=== PATIENT | female | born 1990 | race Caucasian/White ===

== ENCOUNTER 2020-01-31 12:44 | Outpatient (REF) | payer OTHER, SELFPAY ==
[2020-02-01 08:03] LABS: BV Int Neg Control Negative (Negative); BV Int Pos Control Positive (Positive)
[2020-02-01 14:17] LABS: N. gonorrhoeae RNA TMA NOT DETECTED (NOT DETECTED)
[2020-02-02 15:20] LABS: C. trachomatis RNA TMA NOT DETECTED (NOT DETECTED)
== END 2020-01-31 12:45 | disposition home or self-care (01) ==
LOC: HO.LAB 12:44
PROVIDERS: PCP Family Medicine; Visit Provider Obstetrics & Gynecology
DX: Z01.419 Encounter for gynecological examination (general) (routine) without abnormal findings (principal); B37.3 Candidiasis of vulva and vagina
CPT/HCPCS: 87480; 87491; 87510; 87591; 87660; 88142

== ENCOUNTER 2020-09-13 08:15 | Outpatient (REF) | payer OTHER, SELFPAY ==
[2020-09-13 13:14] LABS: CT PCR NOT DETECTED (Not Detect.); NG PCR NOT DETECTED (Not Detect.)
[2020-09-14 10:07] LABS: BV Int Neg Control Negative (Negative); BV Int Pos Control Positive (Positive)
[2020-09-14 13:42] LABS: Prolactin 27.5 ng/mL
== END 2020-09-13 08:16 | disposition home or self-care (01) ==
LOC: HO.LAB 08:15
PROVIDERS: PCP Family Medicine; Visit Provider Advanced Practice Midwife
DX: R10.2 Pelvic and perineal pain (principal); N64.3 Galactorrhea not associated with childbirth; N64.52 Nipple discharge
CPT/HCPCS: 36415; 81003; 81025; 84146; 87480; 87491; 87510; 87591; 87660; 99212

== ENCOUNTER → 2020-09-27 11:15 | Outpatient (BNVA) | payer OTHER, SELFPAY | PROVIDERS: PCP Family Medicine; Visit Provider Advanced Practice Midwife ==

== ENCOUNTER 2021-04-03 09:29 | Outpatient (REF) | payer OTHER, SELFPAY ==
[2021-04-03 15:35] LABS: CT PCR NOT DETECTED (Not Detect.); NG PCR NOT DETECTED (Not Detect.)
[2021-04-06 14:23] LABS: HPV mRNA E6/E7 rflx Not Detected (Not Detected)
== END 2021-04-03 09:30 | disposition home or self-care (01) ==
LOC: HO.LAB 09:29
PROVIDERS: PCP Family Medicine; Visit Provider Advanced Practice Midwife
DX: Z01.419 Encounter for gynecological examination (general) (routine) without abnormal findings (principal); Z11.51 Encounter for screening for human papillomavirus (HPV); Z20.2 Contact with and (suspected) exposure to infections with a predominantly sexual mode of transmission
CPT/HCPCS: 87491; 87591; 87624; 88142

== ENCOUNTER 2021-04-17 15:00 | Outpatient (REF) | payer OTHER, SELFPAY ==
--- NOTE | ~2021-04-17 | MM_ITS ---
EXAMINATION: MM DIAGNOSTIC DIGITAL BREAST TOMOSYNTHESIS, BILATERAL US DIAGNOSTIC ULTRASOUND BREAST, RIGHT CLINICAL INFORMATION: Pain upper outer right breast for several months on and off, noncyclical. No palpable mass or discharge. No known family history breast cancer. Age 30. No prior breast imaging. The lifetime risk of breast cancer based on the Tyrer-Cuzick Model is 10%. COMPARISON: None (current study represents initial baseline exam). TECHNIQUE: Digital breast tomosynthesis is performed in both the craniocaudal and mediolateral oblique views along with computer-aided detection (CAD). Synthesized 2D images are generated from the tomosynthesis. Ultrasound right breast is targeted to the 8:00 through 1:00 position. Grayscale imaging and color Doppler are performed without and with harmonics. FINDINGS: The breasts are heterogeneously dense, which may obscure small masses (ACR BI-RADS breast composition Category c). There are no significant masses, abnormal calcifications, or other abnormalities. No focal duct ectasia. No skin thickening or coarsening of the Mango's ligaments. The axilla are unremarkable. Ultrasound right breast demonstrates no cystic or solid mass or architectural abnormality or focal duct ectasia. No skin thickening or edema tracking in soft tissue planes. Results are discussed with the patient at time of visit. MM/MM tomosynthesis diagnostic BI IMPRESSION: -No mammographic evidence of malignancy or inflammatory changes. -Unremarkable targeted right breast ultrasound. ASSESSMENT: BI-RADS 1: Negative RECOMMENDATION: 1. Patient's right breast pain should be managed based on the clinical impression. 2. Otherwise, routine annual screening mammography, beginning age 40, or earlier as clinical risk factors warrant. This patient's information was entered into a reminder system with a target due date for their next mammogram.
== END 2021-04-17 15:01 | disposition home or self-care (01) ==
LOC: HO.MAMMO 15:00
PROVIDERS: PCP Family Medicine; Visit Provider Advanced Practice Midwife
DX: N64.4 Mastodynia (principal)
CPT/HCPCS: 76642; 77062; 77066

== ENCOUNTER 2022-07-31 10:03 | Outpatient (REF) | payer OTHER, SELFPAY ==
[2022-07-31 17:26] LABS: CT PCR NOT DETECTED (Not Detect.); NG PCR NOT DETECTED (Not Detect.)
== END 2022-07-31 10:04 | disposition home or self-care (01) ==
LOC: HO.LNP 10:03
PROVIDERS: Visit Provider Advanced Practice Midwife
DX: Z20.2 Contact with and (suspected) exposure to infections with a predominantly sexual mode of transmission (principal)
CPT/HCPCS: 0353U

== ENCOUNTER 2023-05-27 11:27 | Outpatient (AMB) | payer OTHER, SELFPAY ==
--- NOTE | 2023-05-27 11:31 | MHC.OFFVIS ---
Intake Vital Signs 05/27/23 11:33 Height 4 ft 10 in BP 102/66 Intake Visit Reasons: Consult for IUD removal Intake Note: pt c/o vag inf or bleeding after intimacy, heavy bleeding in Feb, change in moods Content Producer: Content Producer Present (Rosa) Allergies Opioids - Morphine Analogues Allergy (Severe, Verified 05/27/23 11:33) Anaphylaxis amoxicillin [AMOXICILLIN] Allergy (Unknown, Verified 05/27/23 11:33) RASH clavulanic acid [From AUGMENTIN] Allergy (Unknown, Verified 05/27/23 11:33) RASH desogestrel [From DESOGEN] Allergy (Unknown, Verified 05/27/23 11:33) breast tenderness drospirenone [From BEYAZ] Allergy (Unknown, Verified 05/27/23 11:33) itching,mood changes ethinyl estradiol [From DESOGEN] Allergy (Unknown, Verified 05/27/23 11:33) breast tenderness latex [LATEX] Allergy (Unknown, Verified 05/27/23 11:33) RASH levomefolate calcium [From BEYAZ] Allergy (Unknown, Verified 05/27/23 11:33) itching,mood changes morphine [MORPHINE] Allergy (Unknown, Verified 05/27/23 11:33) bradycardia norethindrone acetate [From GILDESS 02/28 ()] Allergy (Unknown, Verified 05/27/23 11:33) hives, throat swelling Sulfa (Sulfonamide Antibiotics) [SULFA (SULFONAMIDE ANTIBIOTICS)] Allergy (Unknown, Verified 05/27/23 11:33) ANAPHYLAXIS Gildess 02/28 Allergy (Unknown, Uncoded 09/27/20 11:16) hives, throat swelling Latex Allergy (Unknown, Uncoded 09/27/20 11:16) rash Emoquette Adverse Reaction (Unknown, Uncoded 09/27/20 11:16) breast tenderness HPI HPI Comments History of Present Illness Details Patient is here today with concerns, she reports breakthrough bleeding with her Mirena IUD, a little bit more than her normal in March lasted a week and heavier than usual. She also reports since last fall she is having some increase in vaginal discharge slight sweet odor, she thinks was yeast infections and treated with [id number] medications. She also reports that her hormones may be off, she just feels different. She admits to having a lot of sugar in her diet, and is working with her PCP for her weight management goals. 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 Sexual orientation: Straight/Heterosexual Gender identity: Female Female Reproductive History Menstrual Age of Menarche: 12 control method: progestin IUCD (Mirena 02/2018) Date of last pap smear: 04/03/21 (neg pap and hpv) Review of Systems Const All systems reviewed & are unremarkable except as noted in HPI and below Physical Exam Vital Signs: Last Vital Signs BP 102/66 05/27/23 11:33 Const General: cooperative, healthy appearing and no acute distress Orientation/consciousness: patient oriented x3 GI Inspection: Yes normal to inspection Palpation (GI): Soft to palpation and Other GI palpation findings present (Nontender) Rectal Exam - Female: visual inspection normal General: Yes bladder normal to palpation External Female Exam: normal appearance of the urethra Speculum Exam - Vagina: normal appearance of the vagina, normal palpation, normal vaginal discharge and vaginal bleeding Speculum Exam - Cervix: normal appearance of the cervix, normal palpation and Other cervical findings present (IUD strings normal at os) Bimanual exam- vagina & uterus: normal bimanual exam, normal palpation, uterine size normal, bladder normal to palpation, normal palpation, uterine shape normal and non-tender Bimanual Exam- Adnexa, other: normal adnexae OB/external & speculum: vaginal bleeding Neuro General: patient oriented x3 Results AMB Test Urine AMB Test Urine Negative Last Edit by NABEEL Houston on 05/27/23 11:53 Assessment & Plan Assessment & Plan (1) Postcoital bleeding: Code(s): N93.0 - Postcoital and contact bleeding (2) Vaginal discharge: Code(s): N89.8 - Other specified noninflammatory disorders of vagina Plan Discussed plan of care to include pelvic ultrasound, cultures today for BV panel and GC chlamydia. Encouraged to reduce her sugar intake, and to hydrate well. Return to the office for ultrasound follow-up. All of her questions and concerns were addressed to the best of my ability and shared decision making. She is agreeable to the plan of care. This note is constructed using voice recognition software. While every effort has been made to ensure accuracy, metal sponge making machine operator errors may have been included. Orders: Orders Bacterial Vaginosis Panel Today N89.8 - Other specified noninflammatory disorders of vagina, N92.1 - Excessive and frequent menstruation with irregular cycle, Z97.5 - Presence of (intrauterine) contraceptive device AMB HCG Urine Test Today N92.1 - Excessive and frequent menstruation with irregular cycle, Z97.5 - Presence of (intrauterine) contraceptive device CT NG by PCR Today N89.8 - Other specified noninflammatory disorders of vagina, N92.1 - Excessive and frequent menstruation with irregular cycle, Z97.5 - Presence of (intrauterine) contraceptive device Coding Level of Care Code Est Pt Level 4 (29236) Diagnoses Postcoital bleeding N93.0 Vaginal discharge N89.8
[2023-05-27 11:33] VITALS: BP 102/66
== END 2023-05-27 13:07 | disposition home or self-care (01) ==
PROVIDERS: Visit Provider Advanced Practice Midwife
DX: N92.1 Excessive and frequent menstruation with irregular cycle (principal); Z97.5 Presence of (intrauterine) contraceptive device; N93.0 Postcoital and contact bleeding; N89.8 Other specified noninflammatory disorders of vagina
CPT/HCPCS: 99214

== ENCOUNTER 2023-05-27 11:27 | Outpatient (REF) | payer OTHER, SELFPAY ==
[2023-05-27 18:01] LABS: CT PCR NOT DETECTED (Not Detect.); NG PCR NOT DETECTED (Not Detect.)
[2023-05-28 12:41] LABS: BV Int Neg Control Negative (Negative); BV Int Pos Control Positive (Positive)
== END 2023-05-27 11:28 | disposition home or self-care (01) ==
LOC: HO.LAB 11:27
PROVIDERS: Visit Provider Advanced Practice Midwife
DX: N92.1 Excessive and frequent menstruation with irregular cycle (principal); N89.8 Other specified noninflammatory disorders of vagina; N93.0 Postcoital and contact bleeding; Z97.5 Presence of (intrauterine) contraceptive device
CPT/HCPCS: 0353U; 81025; 87480; 87510; 87660

== ENCOUNTER 2023-05-27 11:46 | Outpatient (REF) | payer OTHER, SELFPAY | END 2023-05-27 11:47 | disposition home or self-care (01) | LOC: HO.LNP 11:46 | PROVIDERS: Visit Provider Advanced Practice Midwife | DX: Z13.89 Encounter for screening for other disorder (principal) ==

== ENCOUNTER 2023-05-29 13:25 | Outpatient (REF) | payer OTHER, SELFPAY ==
--- NOTE | ~2023-05-29 | US_ITS ---
EXAMINATION: US PELVIS CLINICAL INFORMATION: Postcoital in contact bleeding LMP January 2017 COMPARISON: Pelvic ultrasound 09/12/2016 TECHNIQUE: Ultrasound of the pelvis is performed using both transabdominal and transvaginal transducers along with Doppler. Transvaginal imaging is performed due to inadequate visualization transabdominally. FINDINGS: Uterus: The uterus is retroverted and measures 8.1 x 3.8 x 6.6 cm. No focal fibroid. The endometrial thickness 0.2 cm The body of the IUD is in the lower uterine segment with arm perforating the myometrium in the lower/mid body of the uterus. Adnexa: Both ovaries are visualized. There is normal color flow to the adnexa. There is no ovarian torsion. There is no pelvic ascites or fluid collection. Right ovary measures 2.6 x 1.9 x 2.0 cm. Volume 7.5 mL. Left ovary measures 4.0 x 1.8 x 2.7 cm. Volume 10.0 cm. US/US pelvic and transvaginal IMPRESSION: 1. THE BODY OF THE IUD IS IN THE LOWER UTERINE SEGMENT WITH ARM PERFORATING THE MYOMETRIUM IN THE LOWER/MID BODY OF THE UTERUS. 2. Retroverted uterus. 3. Normal ovaries.
== END 2023-05-29 13:26 | disposition home or self-care (01) ==
LOC: HO.US 13:25
PROVIDERS: Visit Provider Advanced Practice Midwife
DX: N93.0 Postcoital and contact bleeding (principal)
CPT/HCPCS: 76830; 76856

== ENCOUNTER 2023-06-02 14:21 | Outpatient (AMB) | payer OTHER, SELFPAY ==
--- NOTE | 2023-06-02 14:36 | MHC.OFFVIS ---
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: Route Sales Delivery Drivers Supervisor Present (Rosa) Allergies Opioids - Morphine Analogues Allergy (Severe, Verified 05/27/23 11:33) Anaphylaxis amoxicillin [AMOXICILLIN] Allergy (Unknown, Verified 05/27/23 11:33) RASH clavulanic acid [From AUGMENTIN] Allergy (Unknown, Verified 05/27/23 11:33) RASH desogestrel [From DESOGEN] Allergy (Unknown, Verified 05/27/23 11:33) breast tenderness drospirenone [From BEYAZ] Allergy (Unknown, Verified 05/27/23 11:33) itching,mood changes ethinyl estradiol [From DESOGEN] Allergy (Unknown, Verified 05/27/23 11:33) breast tenderness latex [LATEX] Allergy (Unknown, Verified 05/27/23 11:33) RASH levomefolate calcium [From BEYAZ] Allergy (Unknown, Verified 05/27/23 11:33) itching,mood changes morphine [MORPHINE] Allergy (Unknown, Verified 05/27/23 11:33) bradycardia norethindrone acetate [From GILDESS 02/28 ()] Allergy (Unknown, Verified 05/27/23 11:33) hives, throat swelling Sulfa (Sulfonamide Antibiotics) [SULFA (SULFONAMIDE ANTIBIOTICS)] Allergy (Unknown, Verified 05/27/23 11:33) ANAPHYLAXIS Gildess 02/28 Allergy (Unknown, Uncoded 09/27/20 11:16) hives, throat swelling Latex Allergy (Unknown, Uncoded 09/27/20 11:16) rash Emoquette Adverse Reaction (Unknown, Uncoded 09/27/20 11:16) breast tenderness HPI Comments Details: Patient is here for a follow up ultrasound results due to irregular bleeding, IUD is in the lower segment and arms perforating the myometrium requiring removal. She is also experiencing currently a kidney stone. Urine test is negative today. She was counseled regarding the removal of her IUD. She was consented for the procedure along with anticipatory guidance for the removal and the consents form was signed. She desires to proceed with the IUD removal. 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 Sexual orientation: Straight/Heterosexual Gender identity: Female Female Reproductive History Menstrual Age of Menarche: 12 Review of Systems Const All systems reviewed & are unremarkable except as noted in HPI and below Physical Exam Const General: cooperative, healthy appearing and no acute distress Orientation/consciousness: patient oriented x3 GI Inspection: Yes normal to inspection Palpation (GI): Soft to palpation and Other GI palpation findings present (Nontender) Rectal Exam - Female: visual inspection normal General: Yes bladder normal to palpation External Female Exam: normal appearance of the urethra Speculum Exam - Vagina: normal appearance of the vagina, normal palpation and normal vaginal discharge Speculum Exam - Cervix: normal appearance of the cervix, normal palpation and Other cervical findings present (IUD strings at the os) Bimanual exam- vagina & uterus: normal bimanual exam, normal palpation, uterine size normal, bladder normal to palpation, normal palpation, uterine shape normal and non-tender Bimanual Exam- Adnexa, other: normal adnexae Neuro General: patient oriented x3 Office Procedures Contraception Insert/Removal Details Details: IUD Removal Procedure: The patient was placed in the dorsal lithotomy position. A speculum was inserted vaginally and the cervix and strings were visualized at the os. A ring forcep was utilized, and the patient was asked to give a deep cough while the strings were grasped and gentle firm tug at the same time, removing the IUD device intact. Minimal bleeding was observed. All of the equipment was removed. The patient tolerated the procedure well and left the office in good condition. [id number] - Removal Results AMB Test Urine AMB Test Urine Negative Last Edit by NABEEL Houston on 06/02/23 15:08 Results Reviewed Results Reviewed: Laboratory Last Values Tst Clinic Negative 06/02/23 15:[address] [address] Ultrasound Report Signed with Addenda Patient: Gloria Santamaria MR#: [id number] : 1990 Acct:[id number] Age/Sex: 32 / F ADM Date: 05/29/23 Loc: .[place] Attending Dr: Katie Isabel CNM Ordering Physician: Katie Isabel CNM Date of Service: 05/29/23 Procedure(s): US pelvic and transvaginal Accession Number(s): [id number] cc: Katie Isabel CNM~ ADDENDUMResults Acknowledgement: ANDRE Ypeez (06/01/2023 09:00:44): I spoke to Lali Sharp LPN, at 8:40 AM. Addendum Dictated By: Brittany Walton MD Addendum Signed By: <Electronically signed by Brittany Walton MD in OV> 06/01/23922 Addendum Cosigned By: DD/ TD/TT: / EXAMINATION: US PELVIS CLINICAL INFORMATION: Postcoital in contact bleeding LMP January 2017 COMPARISON: Pelvic ultrasound 09/12/2016 TECHNIQUE: Ultrasound of the pelvis is performed using both transabdominal and transvaginal transducers along with Doppler. Transvaginal imaging is performed due to inadequate visualization transabdominally. FINDINGS: Uterus: The uterus is retroverted and measures 8.1 x 3.8 x 6.6 cm. No focal fibroid. The endometrial thickness 0.2 cm The body of the IUD is in the lower uterine segment with arm perforating the myometrium in the lower/mid body of the uterus. Adnexa: Both ovaries are visualized. There is normal color flow to the adnexa. There is no ovarian torsion. There is no pelvic ascites or fluid collection. Right ovary measures 2.6 x 1.9 x 2.0 cm. Volume 7.5 mL. Left ovary measures 4.0 x 1.8 x 2.7 cm. Volume 10.0 cm. US/US pelvic and transvaginal IMPRESSION: 1. THE BODY OF THE IUD IS IN THE LOWER UTERINE SEGMENT WITH ARM PERFORATING THE MYOMETRIUM IN THE LOWER/MID BODY OF THE UTERUS. 2. Retroverted uterus. 3. Normal ovaries. Dictated By: Brittany Walton MD Signed By: <Electronically signed by Brittany Walton MD in [place]> 06/01/23 0816 DD/ 1407 TD/TT: Community Pharmacist: Assessment & Plan Assessment & Plan (1) Malpositioned intrauterine device (IUD): Code(s): T83.32XA - Displacement of intrauterine contraceptive device, initial encounter (2) Encounter for IUD removal: Code(s): Z30.432 - Encounter for removal of intrauterine contraceptive device Plan Patient prefers not to have any control at this time. She agrees to use condoms. She will repeat her test at home in another week. Advised to call sooner if wants to have other alternatives for control initiated for an appointment. She has an annual exam scheduled in July and wishes to discuss her control at that visit. IUD Removal Information: You may have light bleeding for several days, tapering off to a brown or pink color. Mild cramping after removal is common. She is already using qezu-[id number]-[id number] analgesics for her renal calculi. Call the office if you experience: fever (over 100.4), flu like symptoms, abdominal or pelvic pain, foul smelling discharge or heavy bleeding. This note is constructed using voice recognition software. While every effort has been made to ensure accuracy, early childhood teacher errors may have been included. Orders: Orders AMB HCG Urine Test Today Z32.02 - Encounter for test, result negative Coding Level of Care Code Procedure Only Diagnoses Malpositioned intrauterine device (IUD) T83.32XA Encounter for IUD removal Z30.432 CPT Codes Details - Contraception: 77507 - Removal ([id number])
== END 2023-06-02 15:08 | disposition home or self-care (01) ==
LOC: HO.HWS 14:21
PROVIDERS: Visit Provider Advanced Practice Midwife
DX: T83.32XA Displacement of intrauterine contraceptive device, initial encounter (principal); Z30.432 Encounter for removal of intrauterine contraceptive device; Z32.02 Encounter for pregnancy test, result negative
CPT/HCPCS: 58301

== ENCOUNTER → 2023-06-02 14:21 | Outpatient (BNVA) | payer OTHER, SELFPAY | PROVIDERS: Visit Provider Advanced Practice Midwife | DX: Z30.432 Encounter for removal of intrauterine contraceptive device (principal) | CPT/HCPCS: 58301; 81025 ==

== ENCOUNTER 2023-08-05 13:49 | Outpatient (AMB) | payer OTHER, SELFPAY ==
--- NOTE | 2023-08-05 13:51 | MHC.OFFVIS ---
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 Allergies Opioids - Morphine Analogues Allergy (Severe, Verified 05/27/23 11:33) Anaphylaxis amoxicillin [AMOXICILLIN] Allergy (Unknown, Verified 05/27/23 11:33) RASH clavulanic acid [From AUGMENTIN] Allergy (Unknown, Verified 05/27/23 11:33) RASH desogestrel [From DESOGEN] Allergy (Unknown, Verified 05/27/23 11:33) breast tenderness drospirenone [From BEYAZ] Allergy (Unknown, Verified 05/27/23 11:33) itching,mood changes ethinyl estradiol [From DESOGEN] Allergy (Unknown, Verified 05/27/23 11:33) breast tenderness latex [LATEX] Allergy (Unknown, Verified 05/27/23 11:33) RASH levomefolate calcium [From BEYAZ] Allergy (Unknown, Verified 05/27/23 11:33) itching,mood changes morphine [MORPHINE] Allergy (Unknown, Verified 05/27/23 11:33) bradycardia norethindrone acetate [From GILDESS 02/28 (21)] Allergy (Unknown, Verified 05/27/23 11:33) hives, throat swelling Sulfa (Sulfonamide Antibiotics) [SULFA (SULFONAMIDE ANTIBIOTICS)] Allergy (Unknown, Verified 05/27/23 11:33) ANAPHYLAXIS Gildess 02/28 Allergy (Unknown, Uncoded 09/27/20 11:16) hives, throat swelling Latex Allergy (Unknown, Uncoded 09/27/20 11:16) rash Emoquette Adverse Reaction (Unknown, Uncoded 09/27/20 11:16) breast tenderness Is last menstrual period known: Yes Last menstrual period: 07/20/23 Post menopausal: No Patient : No HPI Comments Details: She is a premenopausal woman presenting for annual examination. Doing well with no concerns. She tries to eat healthy and stays active with exercise. Currently is sexually active, uses condoms. She reports last cycle was normal little heavier since the IUD has been removed. She is undecided if she wants to have another IUD in the future she would like to see how her cycles are, she reports some acne since the IUD was removed. She denies vaginal itching and irritation. She decline STD screening. Denies family history of ovarian or colon cancer. FH breast cancer-mother, BRCA negative. Last pap smear 2021, negative. 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 Sexual orientation: Straight/Heterosexual Gender identity: Female Female Reproductive History Menstrual Age of Menarche: 12 Date of last menstrual period: 07/20/23 Review of Systems Const All systems reviewed & are unremarkable except as noted in HPI and below Reports as per HPI Eyes Reports no additional complaints ENT Reports no additional complaints Card Reports no additional complaints Resp Reports no additional complaints GI Reports as per HPI and Reports no additional complaints Reports as per HPI Musc Reports no additional complaints Skin/Breast Reports as per HPI Neuro Reports no additional complaints Psych Reports no additional complaints Endo Reports no additional complaints Huseyin/Lymph Reports no additional complaints Aller/Immun Reports no additional complaints Physical Exam Vital Signs: Last Vital Signs BP 102/68 08/05/23 13:54 BMI result Body Mass Index 29.3 Const General: cooperative, healthy appearing, no acute distress, well developed and alert Orientation/consciousness: patient oriented x3 HEENT Head: Yes normal to inspection Eyes General: appearance normal, both eyes and all related structures Neck Neck: Yes normal visual inspection Thyroid: Thyroid normal Chest Chest palpation & inspection: normal inspection of the chest and other (no puckering, dimpling, peau de orange, retraction, discharge, masses) Breast/axilla inspection: normal inspection of the breasts Breast/axilla palpation: normal palpation of the breasts Resp Effort & Inspection: normal respiratory effort GI Inspection: Yes normal to inspection Palpation (GI): Soft to palpation Rectal Exam - Female: deferred General: Yes bladder normal to palpation External Female Exam: normal external appearance and normal appearance of the urethra Speculum Exam - Vagina: normal appearance of the vagina, normal palpation and normal vaginal discharge Speculum Exam - Cervix: normal appearance of the cervix and normal palpation Bimanual exam- vagina & uterus: normal bimanual exam, normal palpation, uterine size normal, bladder normal to palpation, normal palpation and non-tender Bimanual Exam- Adnexa, other: no masses Skin General skin exam: no rashes or lesions noted Rashes: no rashes Neuro General: patient oriented x3 Cognition (Neuro): normal cognition Extrem General: Yes normal to inspection Psych Attitude: cooperative Thought process: Normal thought process present Assessment & Plan Assessment & Plan (1) Encounter for well woman exam with routine gynecological exam: Code(s): Z01.419 - Encounter for gynecological examination (general) (routine) without abnormal findings Plan Discussed: Current recommendations for pap smears per ASCCP guidelines. Breast awareness and periodic breast exams. Maintain a healthy lifestyle including a well balanced diet and routine exercise. Use condoms for prevention. Monitor menses and report any abnormal changes. Patient verbalizes understanding and agrees to the plan of care. She was given opportunity to ask questions and all questions were answered to the best of my ability. RTO in one year for annual xerox machine operator examination. This note is constructed using voice recognition software. While every effort has been made to ensure accuracy, industrial pipefitter journeyman errors may have been included. Coding Level of Care Code Est Pt Prev Care 18-39y(57604) Diagnoses Encounter for well woman exam with routine gynecological exam Z01.419
[2023-08-05 13:54] VITALS: BP 102/68; BMI 29.3
== END 2023-08-05 14:27 | disposition home or self-care (01) ==
PROVIDERS: Visit Provider Advanced Practice Midwife
DX: Z01.419 Encounter for gynecological examination (general) (routine) without abnormal findings (principal)
CPT/HCPCS: 99395

== ENCOUNTER → 2023-08-05 13:49 | Outpatient (BNVA) | payer OTHER, SELFPAY | PROVIDERS: Visit Provider Advanced Practice Midwife ==

== ENCOUNTER 2024-08-09 13:52 | Outpatient (AMB) | payer OTHER, SELFPAY ==
--- NOTE | 2024-08-09 13:57 | MHC.OFFVIS ---
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: Incising Machine Operator Present (Rosa) Allergies Opioids - Morphine Analogues Allergy (Severe, Verified 08/09/24 13:58) Anaphylaxis amoxicillin (AMOXICILLIN) Allergy (Unknown, Verified 08/09/24 13:58) RASH clavulanic acid (From AUGMENTIN) Allergy (Unknown, Verified 08/09/24 13:58) RASH desogestrel (From DESOGEN) Allergy (Unknown, Verified 08/09/24 13:58) breast tenderness drospirenone (From BEYAZ) Allergy (Unknown, Verified 08/09/24 13:58) itching,mood changes ethinyl estradiol (From DESOGEN) Allergy (Unknown, Verified 08/09/24 13:58) breast tenderness latex (LATEX) Allergy (Unknown, Verified 08/09/24 13:58) RASH levomefolate calcium (From BEYAZ) Allergy (Unknown, Verified 08/09/24 13:58) itching,mood changes morphine (MORPHINE) Allergy (Unknown, Verified 08/09/24 13:58) bradycardia norethindrone acetate (From GILDESS 02/28 (21)) Allergy (Unknown, Verified 08/09/24 13:58) hives, throat swelling Sulfa (Sulfonamide Antibiotics) (SULFA (SULFONAMIDE ANTIBIOTICS)) Allergy (Unknown, Verified 08/09/24 13:58) ANAPHYLAXIS Gildess 02/28 Allergy (Unknown, Uncoded 09/27/20 11:16) hives, throat swelling Latex Allergy (Unknown, Uncoded 09/27/20 11:16) rash Emoquette Adverse Reaction (Unknown, Uncoded 09/27/20 11:16) breast tenderness Is last menstrual period known: Yes Last menstrual period: 07/18/24 HPI Comments Details: Patient is a premenopausal woman presenting for annual examination. Doing well with director sanitation bureau concerns. Regular monthly menses x6d. Had previous Mirena removed due to migration, felt it with the best fit for her was considering replacement. Currently is sexually active,mostly uses condoms. She denies vaginal itching or irritation. She tries to eat healthy and stays active with exercise. Denies family history of ovarian or colon cancer. FH breast cancer-mother. Last pap smear 2021, negative. 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 Sexual orientation: Straight/Heterosexual Gender identity: Female Female Reproductive History Menstrual Age of Menarche: 12 Date of last menstrual period: 07/18/24 control method: none Total pregnancies: 1 Full term: 1 Number of Living Children: 1 Date of last pap smear: 04/03/21 (neg pap and hpv) Review of Systems Const All systems reviewed & are unremarkable except as noted in HPI and below Reports as per HPI Eyes Reports no additional complaints ENT Reports no additional complaints Card Reports no additional complaints Resp Reports no additional complaints GI Reports as per HPI and Reports no additional complaints Reports as per HPI Musc Reports no additional complaints Skin/Breast Reports as per HPI Neuro Reports no additional complaints Psych Reports no additional complaints Endo Reports no additional complaints Huseyin/Lymph Reports no additional complaints Aller/Immun Reports no additional complaints Physical Exam Vital Signs: Last Vital Signs BP 110/70 08/09/24 13:58 BMI result Body Mass Index 34.1 Const General: cooperative, healthy appearing, no acute distress, well developed and alert Orientation/consciousness: patient oriented x3 HEENT Head: Yes normal to inspection Eyes General: appearance normal, both eyes and all related structures Neck Neck: Yes normal visual inspection Thyroid: Thyroid normal Chest Chest palpation & inspection: normal inspection of the chest and other (no puckering, dimpling, peau de orange, retraction, discharge, masses) Breast/axilla inspection: normal inspection of the breasts Breast/axilla palpation: normal palpation of the breasts Resp Effort & Inspection: normal respiratory effort GI Inspection: Yes normal to inspection Palpation (GI): Soft to palpation Rectal Exam - Female: deferred General: Yes bladder normal to palpation External Female Exam: normal external appearance and normal appearance of the urethra Speculum Exam - Vagina: normal appearance of the vagina, normal palpation and normal vaginal discharge Speculum Exam - Cervix: normal appearance of the cervix and normal palpation Bimanual exam- vagina & uterus: normal bimanual exam, normal palpation, uterine size normal, bladder normal to palpation, normal palpation and non-tender Bimanual Exam- Adnexa, other: no masses Skin General skin exam: no rashes or lesions noted Rashes: no rashes Neuro General: patient oriented x3 Cognition (Neuro): normal cognition Extrem General: Yes normal to inspection Psych Attitude: cooperative Thought process: Normal thought process present Assessment & Plan Assessment & Plan (1) Encounter for well woman exam with routine gynecological exam: Code(s): Z01.419 - Encounter for gynecological examination (general) (routine) without abnormal findings Category: Medical Plan Discussed: Current recommendations for pap smears per ASCCP guidelines. Breast awareness and periodic breast exams. GC chlamydia completed and BV panel for pre screening Mirena IUD insertion. Patient to call office decides to inserted. Counseled regarding preprocedure planning to eat and have something to drink, take 3 ibuprofen 1 hour before her appointment time. Call with menses to in have IUD placed within the 1st 5 days for cycle. Maintain a healthy lifestyle including a well balanced diet and routine exercise. Use condoms for STI and prevention. Patient verbalizes understanding and agrees to the plan of care. She was given opportunity to ask questions and all questions were answered to the best of my ability. RTO in one year for annual director sanitation bureau examination. This note is constructed using voice recognition software. While every effort has been made to ensure accuracy, casting sorter errors may have been included. Orders: Orders CT NG by PCR Vag/Cerv Today Z20.2 - Contact with and (suspected) exposure to infections with a predominantly sexual mode of transmission Bacterial Vaginosis Panel Today Z20.2 - Contact with and (suspected) exposure to infections with a predominantly sexual mode of transmission Coding Level of Care Code Est Pt Prev Care 18-39y(64579) Diagnoses Encounter for well woman exam with routine gynecological exam Z01.419
[2024-08-09 13:58] VITALS: BP 110/70; BMI 34.1
--- OUTSIDE RECORDS SUMMARY | 2024-08-09 15:02 | XMS_ITS | Clinical Summary ---
Author Organization [facility] Address [address] [place] [address] Care Team Providers Care Casino Cage Cashier Name Role Phone Martin Banda MD Primary Care Provider Allergies Active Allergy Reactions Criticality Noted Date Comments Amoxicillin Hives,Itching,Other (see comments),Rash,Swelling High 01/31/2022 Amoxicillin-Pot Clavulanate Hives,Rash,Swelling High 01/31/2022 House Dust Hives 04/28/2023 Latex, Natural Rubber Hives,Itching,Rash 2021 Norethindrone Ac-Eth Estradiol Hives 04/28/2023 Opioids - Morphine Analogues Anaphylaxis ,Unknown,Vomi ting High 01/31/2022 Ragweed Hives 04/28/2023 Sulfa (Sulfonamide Antibiotics) Hives,Itching,Photosensi tivity rash,Swelling High 01/31/2022 Triamterene-Hydrochlorothiaz i d Itching,Other (see comments) 04/28/2023 Medications multivit [id number] 6-dha 29 mg iron-1 mg -300 mg capsule Take 1 capsule by mouth daily. Active Active Problems Problem Noted Date Diagnosed Date Other fatigue 02/12/2024 Mixed conductive and sensori neural hearing loss of right ear with restricted hearing of left ear 12/21/2023 Class 1 obesity without seri ous comorbidity with body mass index (BMI) of 32.0 to 32.9 in adult 11/02/2023 Assessment & Plan (11/03/2023 5:00 PM EDT): Weight loss discussed. Advice is given on the diet. Annual physical exam 11/02/2023 Assessment & Plan (11/03/2023 5:00 PM EDT): Renal pain 06/02/2023 Kidney stone on left side 06/02/2023 Assessment & Plan (11/03/2023 5:00 PM EDT): Orders: US Kidney and Bladder; Future Ambulatory referral to Urology; Future Encounters Date Type Department Care Team Description 05/24/2024 5:00 PM EDT Office Visit [address] [place] [address] Martin Banda MD Class 1 obesity without serious comorbidity with body mass index (BMI) of 32.0 to 32.9 in adult, unspecified obesity type (Primary Dx) from Last 3 Months Immunizations Immunization Administration Dates Next Due INFLUENZA, SPLIT VIRUS, TRIVALENT, PF 11/03/2023 Social History Tobacco Use Types Packs/Day Years Used Date Smoking Tobacco: Never Passive Smoke Exposure: Never Smokeless Tobacco: Never Tobacco Cessation:Counseling Given: Not Answered Alcohol Use Standard Drinks/Week Comments Never 0 (1 standard drink = 0.6 oz pur e alcohol) [facility] Utilities Answer Date Recorded In the past 12 months has e [employer], gas, oil, or water [employer] threatened to shut off services in your home? No 05/23/2024 Hunger Vital Sign Answer Date Recorded Within the past 12 months, y ou worried that your food would run out before you got the money to buy more. Never true 05/24/19 25 Within the past 12 months, t he food you bought just didn't last and you didn't have money to get more. Never true 05/23/2024 Transportation Answer Date Recorded In the past 12 months, has l ack of reliable transportation kept you from medical appointments, meetings, work or from getting things needed for daily living? No 05/23/2024 Housing Answer Date Recorded Housing Risk Low 2 05/23/2024 Housing Risk Medium Not on file 05/23/2024 Housing Risk High Not on file 05/23/2024 What is your living situation today? [facility] 05/23/2024 Comments Unknown Sex and Gender Information Value Date Recorded Sex Assigned at Female 04/25/2023 9:43 AM EDT Legal Sex Female 6:37 PM EDT Gender Identity Female 04/27/2023 8:39 PM EDT Sexual Orientation Straight 04/27/2023 8: 39 PM EDT Last Filed Vital Signs Vital Sign Reading Time Taken Comments Blood Pressure 109/71 05/24/2024 5:03 PM EDT Pulse 63 05/24/2024 5:03 PM EDT Temperature 36.3 C (97.3 F) 05/24/2024 5:03 PM EDT Respiratory Rate - - Oxygen Saturation 98% 05/24/2024 5:03 PM EDT Inhaled Oxygen Concentration - - Weight 74.4 kg (164 lb) 05/24/2024 5:03 PM EDT Height 149.9 cm (4' 11 ) 05/24/2024 5:03 PM EDT Body Mass Index 33.12 05/24/2024 5:03 PM EDT Plan of Treatment Upcoming Encounters Date Type Department Care Team (Late st Contact Info) Description 11/08/2024 5:00 PM EDT Office Visit [address] Department [address] [place] [address] [address] [place] [address] Martin Banda MD [address] [place] [address] Health Maintenance Due Date Last Done Comments Cervical Cancer Screening 1990 HIV Screening 1990 HPV and Pap Smear 1990 Hepatitis C Screening 1990 Pap Smear 1990 Varicella Vaccines (1 of - + 2-dose series) 08/15/2003 COVID-19 Vaccine ( season) 2023 09/11/2020, 08/21/2020 Depression Screening and Follow-Up 05/23/2025 05/23/2024 Social Drivers of Health Annual Screening 05/23/2025 05/23/2024 DTaP,Tdap,and Td Vaccines (8 - Td or Tdap) 08/19/2027 08/18/2017, 02/08/2008, 10/28/2001, Additional history exists RSV Vaccine (60+ years old and patients) (1 - 1-dose 75+ series) 2065 Hepatitis B Vaccines Completed 07/07/2005, 03/08/1996, 08/25/1995 Influenza Vaccine Completed 11/03/2023, , 12/07/2019, Additional history exists Alcohol/Substance Use Screening Completed 05/23/2024 Pneumococcal Vaccine: Pediatric (0-5 Years) and At-Risk Patients (6-50 Years) Aged Out No longer eligible based on patient's age to complete this topic Insurance Advance Directives Documents on File Type Date Recorded Patient Hi Ranger Operator Expl anation Health Care Proxy 11/25/2021 Health Care Proxy 11/25/2021 Health Care Proxy 11/25/2021 Advance Directive 11/05/2021 2:56 PM Care Teams Casino Cage Cashier Relationship Specialty Start Date End Date Martin Banda MD [address] [place] [id number] PCP - General Family Medicine 04/25/23
--- OUTSIDE RECORDS SUMMARY | 2024-08-09 15:02 | XMS_ITS | Clinical Summary ---
Author Organization [facility] [employer] Address [address] [place] [address] Care Team Providers Care Technical Project Lead Name Role Phone Pcp, No Primary Care Provider [phone] Allergies Active Allergy Reactions Criticality Noted Date Comments Amoxicillin 01/31/2022 Amoxicillin-Pot Clavulanate 02/01/20 22 Latex, Natural Rubber 01/31/2022 Opioids - Morphine Analogues 022 Sulfa (Sulfonamide Antibiotics) 01/10 Medications levonorgestreL (MIRENA) 20 mcg/24 hours (8 yrs) 52 mg IUD 1 each by intrauterine route once Active multivitamin capsule Take 1 capsule by mouth daily Active Social History Tobacco Use Types Packs/Day Years Used Date Smoking Tobacco: Never Smokeless Tobacco: Never Tobacco Cessation:Counseling Given: Not Answered Comments No Sex and Gender Information Value Date Recorded Sex Assigned at Not on file Legal Sex Female 10:46 AM EST Gender Identity Not on file Sexual Orientation Not on file Last Filed Vital Signs Vital Sign Reading Time Taken Comments Blood Pressure 88/54 01/31/2022 11:29 AM EST Pulse 89 01/31/2022 11:24 AM EST Temperature 36.9 C (98.4 F) 01/31/2022 11:24 AM EST Respiratory Rate 18 01/31/2022 11:24 AM EST Oxygen Saturation 97% 01/31/2022 11:24 AM EST Inhaled Oxygen Concentration - - Weight - - Height - - Body Mass Index - - Plan of Treatment Health Maintenance Due Date Last Done Comments Depression: Screening Annual ly using PHQ-2/9 in Adults 18 yrs or above (or HM Modifier)([facility]) 2008 Hepatitis C Virus Infection in Adolescents and Adults: Screening (or Modifier) ([facility]) 2008 SDKY Screening Reminder: Laurel womack for all adults ([facility]) 2008 Tobacco Smoking Cessation: i n Adults excluding Women: Behavioral and Pharmacotherapy Interventions ([facility]) 2008 DTaP/Tdap/Td Vaccines ([facility]) (1 - Tdap) 2009 Cervical Cancer Screenin 1-65 yrs of age (or Modifier) 08/15/2011 Cervical Cancer Screening: P ap every 3 yrs pts age 21-65 08/15/2011 Cervical Cancer: Pap Screeni ng with Modifier timing ([facility]) 08/15/2011 Cervical Cancer: hrHPV alone or with cotesting Pap for Pts 30-65yrs screening every 5yrs ([facility]) 08/15/2011 COVID-19 Vaccine Screening: Initial Series and Booster Status ([facility]) (2023- season) 2023 Flu Vaccination: Yearly for ages 18mos through 64 years (or Modifier)([facility]) 09/09/2024 Zoster/Shingles Vaccine Seri es Screening: Adults aged 18+ yrs (or HM Modifiers)([facility]) (1 of 2) 2040 Pneumococcal Vaccination Scr eening: Pts 0-19 & 19-49 yrs of age ([facility]) Aged Out No longer eligible based on patient's age to complete this topic Medical Devices Not on file Insurance [facility] Care Teams Technical Project Lead Relationship Specialty Start Date End Date Pcp, No PCP - General Family Medicine 01/31/22
== END 2024-08-09 14:46 | disposition home or self-care (01) ==
LOC: HO.HWS 13:52
PROVIDERS: Visit Provider Advanced Practice Midwife
DX: Z01.419 Encounter for gynecological examination (general) (routine) without abnormal findings (principal)
CPT/HCPCS: 99395; 99459

== ENCOUNTER 2024-08-09 13:52 | Outpatient (REF) | payer OTHER, SELFPAY ==
[2024-08-10 13:40] LABS: CT PCR NOT DETECTED (Not Detect.); NG PCR NOT DETECTED (Not Detect.)
[2024-08-10 14:10] LABS: Bacterial Vaginosis PCR NEGATIVE (Negative); Candida Group PCR NOT DETECTED (Not Detect); Candida glab krusei PCR NOT DETECTED (Not Detect); Trichomonas vaginalis PCR NOT DETECTED (Not Detect)
== END 2024-08-09 13:53 | disposition home or self-care (01) ==
LOC: HO.LNP 13:52
PROVIDERS: Visit Provider Advanced Practice Midwife
DX: Z20.2 Contact with and (suspected) exposure to infections with a predominantly sexual mode of transmission (principal)
CPT/HCPCS: 81515; 87491; 87591

== ENCOUNTER 2024-08-09 14:35 | Outpatient (REF) | payer OTHER, SELFPAY | END 2024-08-09 14:36 | disposition home or self-care (01) | LOC: HO.LAB 14:35 | PROVIDERS: Visit Provider Advanced Practice Midwife | DX: Z13.89 Encounter for screening for other disorder (principal) ==

== ENCOUNTER 2024-09-20 11:28 | Outpatient (AMB) | payer OTHER, SELFPAY ==
--- NOTE | 2024-09-20 11:33 | MHC.OFFVIS ---
Intake Visit Reasons: Mirena insertion Android Platform Developer: Android Platform Developer Present (Elsy) Accompanied by: Self / Same As Patient Allergies Opioids - Morphine Analogues Allergy (Severe, Verified 09/20/24 11:42) Anaphylaxis amoxicillin (AMOXICILLIN) Allergy (Unknown, Verified 09/20/24 11:42) RASH clavulanic acid (From AUGMENTIN) Allergy (Unknown, Verified 09/20/24 11:42) RASH desogestrel (From DESOGEN) Allergy (Unknown, Verified 09/20/24 11:42) breast tenderness drospirenone (From BEYAZ) Allergy (Unknown, Verified 09/20/24 11:42) itching,mood changes ethinyl estradiol (From DESOGEN) Allergy (Unknown, Verified 09/20/24 11:42) breast tenderness latex (LATEX) Allergy (Unknown, Verified 09/20/24 11:42) RASH levomefolate calcium (From BEYAZ) Allergy (Unknown, Verified 09/20/24 11:42) itching,mood changes morphine (MORPHINE) Allergy (Unknown, Verified 09/20/24 11:42) bradycardia norethindrone acetate (From GILDESS 02/28 (21)) Allergy (Unknown, Verified 09/20/24 11:42) hives, throat swelling Sulfa (Sulfonamide Antibiotics) (SULFA (SULFONAMIDE ANTIBIOTICS)) Allergy (Unknown, Verified 09/20/24 11:42) ANAPHYLAXIS Gildess 02/28 Allergy (Unknown, Uncoded 09/27/20 11:16) hives, throat swelling Latex Allergy (Unknown, Uncoded 09/27/20 11:16) rash Emoquette Adverse Reaction (Unknown, Uncoded 09/27/20 11:16) breast tenderness HPI Comments Details: Patient is here today for Mirena IUD insert, use for contraceptive purposes. Currently on day 3 of her menstrual cycle and has a negative UPT. 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 Sexual orientation: Straight/Heterosexual Gender identity: Female Female Reproductive History Menstrual Age of Menarche: 12 Review of Systems Const All systems reviewed & are unremarkable except as noted in HPI and below Physical Exam Const General: cooperative, healthy appearing and no acute distress Orientation/consciousness: patient oriented x3 GI Inspection: Yes normal to inspection Palpation (GI): Soft to palpation and Other GI palpation findings present (Nontender) Rectal Exam - Female: visual inspection normal General: Yes bladder normal to palpation External Female Exam: normal appearance of the urethra Speculum Exam - Vagina: normal appearance of the vagina, normal palpation and normal vaginal discharge Speculum Exam - Cervix: normal appearance of the cervix and normal palpation Bimanual exam- vagina & uterus: normal bimanual exam, normal palpation, uterine size normal, bladder normal to palpation, normal palpation, uterine shape normal and non-tender Bimanual Exam- Adnexa, other: normal adnexae Neuro General: patient oriented x3 Office Procedures IUD Insert/Removal Details Details: The patient is here today for a Mirena IUD insertion. She was counseled on the side effects including: menstrual cycle changes, pain, infection, bleeding, or expulsion. Risks of injury to the vagina, cervix, uterus, tubes, ovaries, bowel, bladder, and any adjacent tissue, resulting in nerve damage, scarring, and pain. Risks complications for the procedure that may require other test including ultrasounds, Xray, CT or MRI scan, surgery, anesthesia, blood transfusion. A urine test was completed and was negative. She was consented for the IUD insertion and has signed the consent form. All questions were answered. IUD Insertion: The patient was placed in the dorsal lithotomy position and a sterile speculum was inserted. The procedure was completed under aseptic technique. The cervix and vagina were cleansed with a Betadine solution x 3 swabs. A single toothed tenaculum was applied to the cervix for stabilization, and the uterus was sounded to 8 cm. The device was inserted and released with a gentle motion. Bleeding from the tenaculum sites and the procedure were minimal. The strings were trimmed to 3cm. All of the equipment was removed and the bimanual was normal, no tip was palpable at the cervical os. The patient tolerated the procedure well and left the office in good condition. Post IUD Insertion Care: There may be some post insertion bleeding for several days that is usually light and can turn to a light brown or pink in color. Mild cramping may occur. Nothing in the vagina including: tampons, douching or intimacy for several days. You may take an over the counter mild analgesia like Tylenol or Advil (if no allergies), per the manufacturers recommendations on dosing and frequency. Follow the directions completely. Call the office if any: fever (over 100.4), flu like symptoms, abdominal pain, worsening cramping not resolved with over the counter medications, foul smelling vaginal odor, signs of infected appearing discharge, or heavy bleeding. Use a condom for a back up method if indicated for 7 days. Always use a condom for STI prevention; IUD's are not protective against STD's. Return to the office in 4-6 weeks for IUD recheck. This note is constructed using voice recognition software. While every effort has been made to ensure accuracy, assessment expert errors may have been included. 55600-UIS Insertion Procedure code (CPT) selection complete Assessment & Plan Assessment & Plan (1) Encounter for IUD insertion: Code(s): Z30.430 - Encounter for insertion of intrauterine contraceptive device Plan IUD inserted successfully. See procedure notes. This note is constructed using voice recognition software. While every effort has been made to ensure accuracy, assessment expert errors may have been included. Coding Level of Care Code Procedure Only Diagnoses Encounter for IUD insertion Z30.430 CPT Codes Details - CPT: 97056-OPR Insertion ([id number])
--- OUTSIDE RECORDS SUMMARY | 2024-09-20 12:35 | XMS_ITS | Clinical Summary ---
Author Organization [facility] Address [address] [place] [address] Care Team Providers Care Sawyer Helper Name Role Phone Martin Banda MD Primary Care Provider [phone] Allergies Active Allergy Reactions Criticality Noted Date Comments Amoxicillin Hives,Itching,Other (see comments),Rash,Swelling High 01/31/2022 Amoxicillin-Pot Clavulanate Hives,Rash,Swelling High 01/31/2022 House Dust Hives 04/28/2023 Latex, Natural Rubber Hives,Itching,Rash 2021 Norethindrone Ac-Eth Estradiol Hives 04/28/2023 Opioids - Morphine Analogues Anaphylaxis ,Unknown,Vomi ting High 01/31/2022 Ragweed Hives 04/28/2023 Sulfa (Sulfonamide Antibiotics) Hives,Itching,Photosensi tivity rash,Swelling High 01/31/2022 Triamterene-Hydrochlorothiaz i d Itching,Other (see comments) 04/28/2023 Medications multivit [id number] 6-dha 29 mg iron-1 mg -300 mg [...] Bladder; Future Ambulatory referral to Urology; Future Immunizations Immunization Administration Dates Next Due INFLUENZA, SPLIT VIRUS, TRIVALENT, PF 11/03/2023 Social History Tobacco Use Types Packs/Day Years Used Date Smoking Tobacco: Never Passive Smoke Exposure: Never Smokeless Tobacco: Never Tobacco Cessation:Counseling Given: Not Answered Alcohol Use Standard Drinks/Week Comments Never 0 (1 standard drink = 0.6 oz pur e alcohol) [facility] Utilities Answer Date Recorded In the past 12 months has e [employer], gas, oil, or water [employer] threatened to shut off services in your [...] Description 11/08/2024 5:00 PM EDT Office Visit [address] Department [address] [place] [phone] Martin Banda MD [address] [place] [address] Health Maintenance Due Date Last Done Comments Cervical Cancer Screening 1990 HIV Screening 1990 HPV and Pap Smear 1990 Hepatitis C Screening 1990 Pap Smear 1990 Varicella Vaccines (1 of 2 - 13+ 2-dose series) 08/15/2003 COVID-19 Vaccine ( season) 2023 09/11/2020, 08/21/2020 Influenza Vaccine (#1) 2024 , 11/13/2020, 12/07/2019, Additional history exists Depression Screening and Follow-Up 05/23/2025 05/23/2024 Social Drivers of Health Annual Screening 05/23/2025 05/23/2024 DTaP,Tdap,and Td Vaccines (8 - Td or Tdap) 08/19/2027 08/18/2017, 02/08/2008, 10/28/2001, Additional history exists RSV Vaccine (60+ years old and patients) (1 - 1-dose 75+ series) 2065 Hepatitis B Vaccines Completed 07/07/2005, 03/08/1996, 08/25/1995 Alcohol/Substance Use Screening Completed 05/23/2024 Pneumococcal Vaccine: Pediatric (0-5 Years) and At-Risk Patients (6-50 Years) Aged Out No longer eligible based on patient's age to complete this topic Insurance Advance Directives Documents on File Type Date Recorded Patient Instructional Support Specialist Expl anation Health Care Proxy 11/25/2021 Health Care Proxy 11/25/2021 Health Care Proxy 11/25/2021 Advance Directive 11/05/2021 2:56 PM Care Teams Sawyer Helper Relationship Specialty Start Date End Date Martin Banda MD [address] [place] [phone] PCP - General Family Medicine 04/25/23
--- OUTSIDE RECORDS SUMMARY | 2024-09-20 12:35 | XMS_ITS | Clinical Summary ---
Author Organization [facility] [employer] Address [address] [place] [address] Care Team Providers Care Medical Detail Representative Name Role Phone Pcp, No Primary Care Provider [phone] Allergies Active Allergy Reactions Criticality Noted Date [...] Adults 18 yrs or above (or HM Modifier)([facility]) 2008 Hepatitis C Virus Infection in Adolescents and Adults: Screening (or Modifier) ([facility]) 2008 SDDE Screening Reminder: Laurel womack for all adults ([facility]) 2008 Tobacco Smoking Cessation: i n Adults excluding Women: Behavioral and Pharmacotherapy Interventions ([facility]) 2008 DTaP/Tdap/Td Vaccines ([facility]) (1 - Tdap) 2009 Cervical Cancer Screenin 1-65 yrs of age (or Modifier) 08/15/2011 Cervical Cancer Screening: P ap every 3 yrs pts age 21-65 08/15/2011 Cervical Cancer: Pap Screeni ng with Modifier timing ([facility]) 08/15/2011 Cervical Cancer: hrHPV alone or with cotesting Pap for Pts 30-65yrs screening every 5yrs ([facility]) 08/15/2011 COVID-19 Vaccine Screening: Initial Series and Booster Status ([facility]) (2023- season) 2023 Flu Vaccination: Yearly for ages 18mos through 64 years (or Modifier)([facility]) 09/09/2024 Zoster/Shingles Vaccine Seri es Screening: Adults aged 18+ yrs (or HM Modifiers)([facility]) (1 of 2) 2040 Pneumococcal Vaccination Scr eening: Pts 0-19 & 19-49 yrs of age ([facility]) Aged Out No longer eligible based on patient's age to complete this topic Medical Devices Not on file Insurance [facility] Care Teams Medical Detail Representative Relationship Specialty Start Date End Date Pcp, No PCP - General Family Medicine 01/31/22
== END 2024-09-20 12:09 | disposition home or self-care (01) ==
LOC: HO.HWS 11:28
PROVIDERS: Visit Provider Advanced Practice Midwife
DX: Z30.430 Encounter for insertion of intrauterine contraceptive device (principal); Z32.02 Encounter for pregnancy test, result negative
CPT/HCPCS: 58300

== ENCOUNTER → 2024-09-20 11:28 | Outpatient (BNVA) | payer OTHER, SELFPAY | PROVIDERS: Visit Provider Advanced Practice Midwife | DX: Z30.430 Encounter for insertion of intrauterine contraceptive device (principal); Z32.02 Encounter for pregnancy test, result negative | CPT/HCPCS: 58300; 81025 ==

== ENCOUNTER 2024-11-02 08:50 | Outpatient (AMB) | payer OTHER, SELFPAY ==
--- NOTE | 2024-11-02 08:53 | MHC.OFFVIS ---
Vital Signs 11/02/24 09:01 Height 4 ft 10 in Weight 161 lb BMI 33.6 BP 102/68 Blood Pressure Location Rt brachial Position Sitting Intake Visit Reasons: iud check Intake Note: here for 6 weeks follow up. Information Interpreted: non-clinical & clinical Felt Finishing Supervisor: Felt Finishing Supervisor Present (Jennyfer) Accompanied by: Self / Same As Patient Allergies Opioids - Morphine Analogues Allergy (Severe, Verified 11/02/24 08:58) Anaphylaxis amoxicillin (AMOXICILLIN) Allergy (Unknown, Verified 11/02/24 08:58) RASH clavulanic acid (From AUGMENTIN) Allergy (Unknown, Verified 11/02/24 08:58) RASH desogestrel (From DESOGEN) Allergy (Unknown, Verified 11/02/24 08:58) breast tenderness drospirenone (From BEYAZ) Allergy (Unknown, Verified 11/02/24 08:58) itching,mood changes ethinyl estradiol (From DESOGEN) Allergy (Unknown, Verified 11/02/24 08:58) breast tenderness latex (LATEX) Allergy (Unknown, Verified 11/02/24 08:58) RASH levomefolate calcium (From BEYAZ) Allergy (Unknown, Verified 11/02/24 08:58) itching,mood changes morphine (MORPHINE) Allergy (Unknown, Verified 11/02/24 08:58) bradycardia norethindrone acetate (From GILDESS 02/28 (21)) Allergy (Unknown, Verified 11/02/24 08:58) hives, throat swelling Sulfa (Sulfonamide Antibiotics) (SULFA (SULFONAMIDE ANTIBIOTICS)) Allergy (Unknown, Verified 11/02/24 08:58) ANAPHYLAXIS Gildess 02/28 Allergy (Unknown, Uncoded 11/02/24 08:58) hives, throat swelling Latex Allergy (Unknown, Uncoded 11/02/24 08:58) rash Emoquette Adverse Reaction (Unknown, Uncoded 11/02/24 08:58) breast tenderness Medication List - Last Reconciled 11/02/24 by Jennyfer Dawkins LPN levonorgestrel (Mirena) intrauterine Is last menstrual period known: Yes Last menstrual period: 10/19/24 Post menopausal: No Patient : No Do you need a note to return to daycare/school/sports/work: No HPI Comments Details: Patient is here today for a follow up status post IUD checkup, she reports new onset of facial acne, has a improves somewhat since the device has been placed. 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 Sexual orientation: Straight/Heterosexual Gender identity: Female Female Reproductive History Menstrual Age of Menarche: 12 Date of last menstrual period: 10/19/24 control method: progestin IUCD Total pregnancies: 1 Number of Living Children: 1 Review of Systems Const All systems reviewed & are unremarkable except as noted in HPI and below Physical Exam Vital Signs: Last Vital Signs BP 102/68 11/02/24 09:01 BMI result Body Mass Index 33.6 Const General: cooperative, healthy appearing and no acute distress Orientation/consciousness: patient oriented x3 GI Inspection: Yes normal to inspection Palpation (GI): Soft to palpation and Other GI palpation findings present (Nontender) Rectal Exam - Female: visual inspection normal General: Yes bladder normal to palpation External Female Exam: normal appearance of the urethra Speculum Exam - Vagina: normal appearance of the vagina, normal palpation and normal vaginal discharge Speculum Exam - Cervix: normal appearance of the cervix, normal palpation and Other cervical findings present (IUD strings are at the os, no tip palpable) Bimanual exam- vagina & uterus: normal bimanual exam, normal palpation, uterine size normal, bladder normal to palpation, normal palpation, uterine shape normal and non-tender Bimanual Exam- Adnexa, other: normal adnexae Neuro General: patient oriented x3 Results AMB Test Urine AMB Test Urine Negative Last Edit by Jennyfer Dawkins LPN on 11/02/24 09:04 Results Reviewed Results Reviewed: Laboratory Last Values Tst Clinic Negative 11/02/24 09:04 Assessment & Plan Assessment & Plan (1) IUD check up: Code(s): Z30.431 - Encounter for routine checking of intrauterine contraceptive device Plan Counseled regarding IUD side effects, often acne improves with time. Annual exam scheduled for August 2025. Advised to call with any concerns prior to her annual. The patient expressed understanding and agreement with the plan of care. All of her questions and concerns were addressed to the best of my ability. This note is constructed using voice recognition software. While every effort has been made to ensure accuracy, fire loss prevention engineer errors may have been included. Coding Level of Care Code Est Pt Level 2 (77446) Diagnoses IUD check up Z30.431
[2024-11-02 09:01] VITALS: BP 102/68; BMI 33.6
--- OUTSIDE RECORDS SUMMARY | 2024-11-02 10:07 | XMS_ITS | Clinical Summary ---
Author Organization [facility] Address [address] [place] [address] Care Team Providers Care Flask Cleaner Name Role Phone Martin Banda MD Primary Care Provider [phone] Allergies Active Allergy Reactions Criticality Noted Date Comments Amoxicillin Hives,Itching,Other (see comments),Rash,Swelling High 01/31/2022 Amoxicillin-Pot Clavulanate Hives,Rash,Swelling High 01/31/2022 House Dust Hives 04/28/2023 Latex, Natural Rubber Hives,Itching,Rash 2021 Norethindrone Ac-Eth Estradiol Hives 04/28/2023 Opioids - Morphine Analogues Anaphylaxis ,Unknown,Vomi ting High 01/31/2022 Ragweed Hives 04/28/2023 Sulfa (Sulfonamide Antibiotics) Hives,Itching,Photosensi tivity rash,Swelling High 01/31/2022 Triamterene-Hydrochlorothiaz i d Itching,Other (see comments) 04/28/2023 Medications multivit [id number] 6-dha 29 mg iron-1 mg -300 mg [...] drink = 0.6 oz pur e alcohol) [facility] Utilities Answer Date Recorded In the past 12 months has e [employer], gas, oil, or water [employer] threatened to shut off services in your [...] Description 11/08/2024 5:00 PM EDT Office Visit [address] Department [address] [place] [phone] Martin Banda MD [address] [place] [address] Health Maintenance Due Date Last Done Comments Cervical Cancer Screening 1990 HIV Screening 1990 HPV and Pap Smear 1990 Hepatitis C Screening 1990 Pap Smear 1990 Varicella Vaccines (1 of 2 - 13+ 2-dose series) 08/15/2003 COVID-19 Vaccine ( season) 2024 09/11/2020, 08/21/2020 Influenza Vaccine (#1) 2024 , 11/13/2020, 12/07/2019, Additional history exists Social Drivers of Health Annual Screening 05/23/2025 05/23/2024 Depression Screening and Follow-Up 11/01/2025 11/01/2024 DTaP,Tdap,and Td Vaccines (8 - Td or Tdap) 08/19/2027 08/18/2017, 02/08/2008, 10/28/2001, Additional history exists RSV Vaccine (60+ years old and patients) (1 - 1-dose 75+ series) 2065 Hepatitis B Vaccines Completed 07/07/2005, 03/08/1996, 08/25/1995 Alcohol/Substance Use Screening Completed 11/01/2024 Pneumococcal Vaccine: Pediatric (0-5 Years) and At-Risk Patients (6-50 Years) Aged Out No longer eligible based on patient's age to complete this topic Insurance Advance Directives Documents on File Type Date Recorded Patient Yarn Dyer Expl anation Health Care Proxy 11/25/2021 Health Care Proxy 11/25/2021 Health Care Proxy 11/25/2021 Advance Directive 11/05/2021 2:56 PM Care Teams Flask Cleaner Relationship Specialty Start Date End Date Martin Banda MD [address] [place] [phone] PCP - General Family Medicine 04/25/23
--- OUTSIDE RECORDS SUMMARY | 2024-11-02 10:08 | XMS_ITS | Clinical Summary ---
Author Organization [facility] [employer] Address [address] [place] [address] Care Team Providers Care Claims Account Manager Name Role Phone Pcp, No Primary Care Provider [phone] Allergies Active Allergy Reactions Criticality Noted Date [...] Adults 18 yrs or above (or HM Modifier)([facility]) 2008 Hepatitis C Virus Infection in Adolescents and Adults: Screening (or Modifier) ([facility]) 2008 SDMI Screening Reminder: Laurel womack for all adults ([facility]) 2008 Tobacco Smoking Cessation: i n Adults excluding Women: Behavioral and Pharmacotherapy Interventions ([facility]) 2008 DTaP/Tdap/Td Vaccines ([facility]) (1 - Tdap) 2009 Cervical Cancer Screenin 1-65 yrs of age (or Modifier) 08/15/2011 Cervical Cancer Screening: P ap every 3 yrs pts age 21-65 08/15/2011 Cervical Cancer: Pap Screeni ng with Modifier timing ([facility]) 08/15/2011 Cervical Cancer: hrHPV alone or with cotesting Pap for Pts 30-65yrs screening every 5yrs ([facility]) 08/15/2011 Flu Vaccination: Yearly for ages 18mos through 64 years (or Modifier)([facility]) 09/09/2024 Zoster/Shingles Vaccine Seri es Screening: Adults aged 18+ yrs (or HM Modifiers)([facility]) (1 of 2) 2040 Pneumococcal Vaccination Scr eening: Pts 0-19 & 19-49 yrs of age ([facility]) Aged Out No longer eligible based on patient's age to complete this topic Medical Devices Not on file Insurance [facility] Care Teams Claims Account Manager Relationship Specialty Start Date End Date Pcp, No PCP - General Family Medicine 01/31/22
== END 2024-11-02 10:12 | disposition home or self-care (01) ==
LOC: HO.HWS 08:50
PROVIDERS: Visit Provider Advanced Practice Midwife
DX: Z30.431 Encounter for routine checking of intrauterine contraceptive device (principal)
CPT/HCPCS: 99212

== ENCOUNTER → 2024-11-02 08:50 | Outpatient (BNVA) | payer SELFPAY | PROVIDERS: Visit Provider Advanced Practice Midwife | DX: Z30.431 Encounter for routine checking of intrauterine contraceptive device (principal); L70.9 Acne, unspecified; Z98.891 History of uterine scar from previous surgery | CPT/HCPCS: 99212 ==